=== PATIENT | female | born 2000 | race Caucasian/White ===

== ENCOUNTER → 2023-09-28 23:07 | Emergency (ER) | payer SELFPAY ==
[2023-09-28 23:11] VITALS: BP 123/83
[2023-09-29 00:31] LABS: Hematocrit 37.6 % (37.0-47.0); Hemoglobin 13.2 g/dL (12.0-16.0); Mean Corp Hgb Conc. 35.1 g/dL (33.0-37.0); Mean Corpuscular Hgb 32.3 pg (27.0-31.0); Mean Corpuscular Volume 91.9 fL (81.0-99.0); Mean Platelet Volume 9.9 fL (7.4-10.4); Platelet Count 275 10^3/uL (130-400); Red Blood Cell Count 4.09 10^6/uL (4.20-5.40); Red Cell Dist. Width 12.3 % (11.5-14.5); White Blood Cell Count 8.4 10^3/uL (4.8-10.8)
[2023-09-29 00:44] LABS: HCG, Serum Qualitative Screen Negative
[2023-09-29 00:52] LABS: Blood Urea Nitrogen 10 mg/dl (7-17); Calcium 9.7 mg/dl (8.4-10.2); Carbon Dioxide 25 mmol/L (22-30); Chloride 105 mmol/L (98-107); Glucose 84 mg/dl (70-99); Sodium 137 mmol/L (135-145); eGFR > 60.00
[2023-09-29 01:04] VITALS: BMI 23.6
[2023-09-29 01:09] VITALS: BP 109/76
--- NOTE | 2023-09-29 01:37 | ED.GENMED ---
History of Present Illness
General
Chief Complaint: Chest Pain
Source: patient
Exam Limitations: none
Time Seen by Provider: 09/29/23 01:36
Nursing documentation reviewed up to this point in time: agreed with
History of Present Illness
History of Present Illness:
22-year-old female presents emergency room complaining of intermittent chest pain. It feels deep but feels like her heart is skipping as well. She has seen her primary care doctor for this, but states she is concerned because it keeps happening.
Past History
Past History
ED Past Medical History: Psychiatric (Bipolar, anxiety)
ED Past Surgical History: None
Patient has exhibited threatening behavior?: No
Social History
Tobacco: Smoker
Alcohol: Binge drinker
Drug: None
Employment: Employed
Review of Systems
Review of Systems
Allergies reviewed?: Yes
All Other Systems: Not applicable
Constitutional: Reports no symptoms
EENT: Reports no symptoms
Respiratory: Reports no symptoms
Cardiac: Reports chest pain and palpitations
ABD/GI: Reports no symptoms
: Reports no symptoms
Musculoskeletal: Reports no symptoms
Skin: Reports no symptoms
Neurological: Reports no symptoms
Endocrine: Reports no symptoms
Hematologic/Lymphatic: Reports no symptoms
Psychiatric: Reports no symptoms
Phy Exam
Physical Exam
Physical Exam:
Physical Exam
General: no apparent distress, not acutely ill
Neck: supple. no meningeal signs. normal posterior pharynx
Heart: s1/s2 regular rate and rhythm, no murmur. equal radial
pulses.
HEENT: Pupils equal round reactive to light, EOMI
Lungs: no acute respiratory distress. clear bilaterally
Abdomen: normal bowel sounds. not tender. no CVAT
Neuro: alert and oriented. no focal neurological deficits cranial nerves II through XII intact
Skin: no rash
Psychiatric: well kept. interactive and cooperative
Extremities: no edema. no calf tenderness. negative homans. good distal pulses
Scores
Heart Score for Chest Pain Patients
STEMI patient?: No
History: Slightly or Non-Suspicious
ECG: Normal
Age: </= 45 years
Risk Factors: 1 or 2 Risk Factors
Troponin: </= Normal Limit
Heart Score for Chest Pain Patients: 1
Heart Score Risk: 2.5% MACE over next 6 weeks
Course
Orders/Labs/Results
Orders:
Orders
09/28/23 23:09
Electrocardiogram (*1) Urgent
Reason for Study: Chest Pain
09/28/23 23:10
EKG- Treatment ONCE
09/29/23 00:06
CXR2 [CR Chest - 2 Views ] Urgent
Comment:
Reason For Exam: chest pain
09/29/23 00:07
Test Result ONCE
09/29/23 00:13
BMP [Basic Metabolic Panel] Urgent
Complete Blood Count/No Diff Urgent
HCG, Serum Qualitative Screen Urgent
Abnormal Lab Results
09/29/23
00:13
RBC 4.09 L 10^6/uL
(4.20-5.40)
MCH 32.3 H pg
(27.0-31.0)
09/29/23 00:13
09/29/23 00:13
Vital Signs
Initial and Last Documented VS:
Initial Vital Signs
Temp Pulse Resp BP Pulse Ox
98.4 F 96 20 123/83 99
09/28/23 23:11 09/28/23 23:11 09/28/23 23:11 09/28/23 23:11 09/28/23 23:11
Last Documented Vital Signs
Temp Pulse Resp BP Pulse Ox
98.4 F 98 20 109/76 98
09/28/23 23:11 09/29/23 01:30 09/29/23 01:30 09/29/23 01:09 09/29/23 01:30
MDM/Problems Addressed
Differential Diagnosis Includes:
PE, PACs, PVCs
MDM/Problems Addressed:
22-year-old female with palpitations, do not suspect ACS or PE. No signs of dysrhythmia. Patient stable for discharge. Follow-up with [facility]
Chronic conditions affecting care: Psychiatric illness (Anxiety, bipolar)
*Pulse Oximetry
Patient hypoxic: no
*EKG
Interpreted by ED Provider?: Yes
EKG Intrepretation Date: 09/28/23
EKG Intrepretation Time: 23:15
Interpretation: abnormal
Comparison EKG: no comparison EKG present
Heart Rate: 98
Rate: normal
Rhythm: sinus
[place]: normal axis
Interval: normal interval
QRS Pattern: normal QRS
Ischemia: non-specific ST changes
*[employer] Pulverizing Operator Interpretation
Rate: normal
Interpretation: normal
Heart Rate: 88
Rhythm: sinus
*Critical Care Note
Total Time (30-74mins, 75-104mins- exclusive of procedures): Not Applicable
Patient Management
Social determinants of health affecting care: Living situation, Financial situation and Poor outpatient follow-up
Escalation/DeEscalation of care consider admission/obs:
Admit not indicated
ED Attending Note
-
Portions of this chart may have been created with voice recognition software.� Occasional wrong word or��sound alike� substitutions may have occurred due to the inherent limitations of voice recognition software.
Discharge Plan
Departure
Patient Disposition: Home (Routine Discharge)
Date of Disposition: 09/29/23
Time of Disposition: 02:23
Patient with high blood pressure during this ER visit?: No
Condition: Good
Discharge Problem:
Chest pain
Instructions: Chest Pain PCP Follow Up
Prescriptions:
No Action
No Current Medications
0
Interventions
Interventions:
*Risk Screen - Suicide Last Done: 09/29/23 01:04
*General Assessment Last Done: 09/29/23 01:04
*Neglect/Abuse Screening Last Done: 09/29/23 01:04
ED- Fall Risk Assessment Last Done: 09/29/23 01:04
*ED COVID-19 Vaccine History Last Done: 09/29/23 01:04
ED- Cardiac Assessment Last Done: 09/29/23 01:04
Discharge Date and Time
Print Language: MACEDONIAN
== END | disposition home or self-care (01) ==
LOC: EMR 23:07
PROVIDERS: EMERGENCY PHYSICIAN Emergency Medicine
DX: R07.89 Other chest pain (principal); R00.2 Palpitations; F31.9 Bipolar disorder, unspecified; F41.9 Anxiety disorder, unspecified; F41.0 Panic disorder [episodic paroxysmal anxiety]; F17.200 Nicotine dependence, unspecified, uncomplicated
CPT/HCPCS: 99284; 71046; 80048; 84703; 85027; 93005